=== PATIENT | female | born 1990 | race Caucasian/White ===

== ENCOUNTER → 2023-06-02 13:15 | Outpatient (BNV) | payer OTHER, SELFPAY | PROVIDERS: Visit Provider Psychiatry & Neurology Psychiatry | DX: F33.2 Major depressive disorder, recurrent severe without psychotic features (principal); F39 Unspecified mood [affective] disorder; F43.10 Post-traumatic stress disorder, unspecified; F63.89 Other impulse disorders; R41.840 Attention and concentration deficit; F12.10 Cannabis abuse, uncomplicated; F90.2 Attention-deficit hyperactivity disorder, combined type; F33.9 Major depressive disorder, recurrent, unspecified | CPT/HCPCS: 90792; 99213 ==

== ENCOUNTER 2023-06-03 13:15 | Outpatient (RCR) | payer OTHER, SELFPAY ==
[2023-05-20 10:44] VITALS: BP 120/83; PULSE 60; TEMP 36.9
[2023-05-20 10:47] VITALS: BMI 28.3
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
[2023-05-20 13:14] LABS: Amphetamine Screen Urine Not Detected (Not Detect); Barbiturates, Urine Not Detected (Not Detect); Benzodiazepines Screen Urine Not Detected (Not Detect); Cannabinoid Screen Urine POSITIVE (Not Detect); Cocaine Screen Urine Not Detected (Not Detect); Fentanyl, urine Not Detected (Not Detect); Opiate Screen Urine Not Detected (Not Detect); Phencyclidine Screen Urine Not Detected (Not Detect)
--- NOTE | 2023-05-20 18:38 | HO.PHP ---
The client's case was reviewed and opened in treatment team.
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
--- NOTE | 2023-05-25 21:32 | HO.PHPPROGNO ---
Subjective Subjective Date of Service: 05/25/23 Reason For Visit: depression,anxiety Interim History: Patient seen for follow-up. No acute issues or concerns. Reports that the gabapentin has been helpful for sleep, able to stay asleep and wake in the morning calmer, less hyper, not rushing around as much. I dont feel like I'm bouncing around in the morning as much, I can process things a little better . (She is still notably hyperactive - humorous, gregarious, animated communication style, exaggerated facial expressions, gestures with her hands when speaking - perhaps modestly calmer and does not appear nervous). Mood is dulled down has felt les depressed since being on the Zoloft, describes mood as being more level, a little flat overall, however when emotionally provoked, she reports experiencing spikes far more intense and dramatic than at baseline. She asked her boyfriend and mother, what they have noticed, and they see the same thing. In fact her boyfriend finds these extreme mood spikes, are less often, but when they occurr are more extreme and last a little longer (ie. take longer to resolve, by several hours) than her previous baseline. Her baseline is described as emotionally reactive but quickly resolves and returns to baseline with an hour or so. Medication Compliance: Yes Side effects from medications: No Attending Groups: Yes Review of Systems Acute medical concerns: No Mental Status Exam Mental Status Exam Narrative: Alert, oriented, in no acute distress. Appropriately dressed. Hygiene, grooming intact. Normal gait, no tics/tremors/dyskinesia, animated, hyperactive, no psychomotor agitation or neurovegetative retardation. Engaged, cooperative, forthcoming. Maintains appropriate eye contact. Mood is improving, less anxious. Affect bright, full range, reactive without irritability or lability.? Speech is abundant, mod-loud volume, regular rate, rhythm, prosody. No latency or pressured speech. Thought process somewhat scattered, expansive but coherent, no FOI or PARTH. Thought content relevant to stressors, no paranoid or delusional content elicited, +future-orientation. Denies SI or HI on inquiry. No evidence of psychosis. Cognition grossly intact. Sensorium clear. Insight fair/good. Judgment intact. Diagnostics Vital Signs (24Hr): BMI result Body Mass Index 28.3 Assessment & Plan Assessment & Plan (1) Mood disorder: Status: Acute Code(s): F39 - Unspecified mood [affective] disorder (2) Attention deficit hyperactivity disorder (ADHD): Qualifiers: Attention deficit-hyperactivity disorder type: predominantly hyperactive Qualified Code(s): F90.1 - Attention-deficit hyperactivity disorder, predominantly hyperactive type Status: Acute Code(s): F90.9 - Attention-deficit hyperactivity disorder, unspecified type (3) Post-traumatic stress disorder, unspecified: Status: Acute Code(s): F43.10 - Post-traumatic stress disorder, unspecified (4) Cannabis abuse: Status: Acute Code(s): F12.10 - Cannabis abuse, uncomplicated Plan start Lamictal 25 mg qd, increase by 25 mg q 2 weeks until reach 100 mg/d will continue Zoloft for now, anticipate taper off once Lamictal is therapeutic start Concerta 18 mg qAM (limit 3x/wk) continue gabapentin 300 mg qhs continue to monitor Patient educated on: diagnosis, medication risk/benefits, substance abuse and therapeutic strategies Informed Consent: understands Reason for contiued partial hosp. stay Substantial Risk for: inability to function and med/psych decompensation Certification I certify that partial hospital treatment is medically necessary due to the symptoms and problems resulting from the patient's mental illness and the failure to treat the patient at the partial hospital level of care would likely result in the patient requiring inpatient psychiatric care which could not be prevented at a less intensive level of care. Total time managing care of this patient today __30__ minutes. Discharge Plan Discharge Attending provider: Shirley Sánchez Additional Instructions: Elisha has a med provider appointment July 27, 2022 at 4:20 PM with Pavel Freitas. Medications: New gabapentin 300 mg capsule 300 mg PO BEDTIME Qty: 14 0RF lamotrigine 25 mg tablet See Rx Instructions .ROUTE .COMPLEX 45 Days Qty: 90 0RF Rx Instructions: take 1 tablet po daily for 2 weeks, then increase to 2 tablets po daily for 2 weeks, then take 3 tablets daily methylphenidate HCl [Concerta] 18 mg tablet extended release 24hr 18 mg PO QAM Qty: 14 0RF Rx Instructions: Partial Fill upon patient request. Continued sertraline 50 mg tablet 50 mg PO DAILY melatonin 10 mg Tablet 10 mg PO BEDTIME PRN (Reason: Insomnia) No Action quetiapine 50 mg tablet 50 mg PO BEDTIME Stand Alone Forms: Patient Portal Discharge page
--- NOTE | 2023-05-27 08:12 | HO.PHP ---
PHP staff member sent a fax referral for OP therapy to [facility] for Elishabhakti Valencia and is awaiting a scheduled date and time.
--- NOTE | 2023-06-03 09:52 | PC.NURSE ---
Patient requested help finding a new PCP. New PCP appointment made at [facility] with Dr. Beatty at [address] [place] [address]. Nahum hartley appointment on Friday October 13, 2023 at 11:30 am. Office Number [phone].
--- NOTE | 2023-06-03 22:16 | P.PNPSP_ITS ---
Subjective Subjective Date of Service: 06/03/23 Reason For Visit: depression,anxiety Interim History: Patient doing well, feeling calmer. Utilizing coping skills. Has been compliant on her medication, which is well-tolerated. She has been carrying an organizer with her and learning to implement using it to build better routines and structure in her life. She says it is helping her stay organized. She reports having had an appointment with her outpatient provider Dr. Davila last Wednesday. He says he is pleased with how she is doing and reportedly feels she is on a good medication regime. Unfortunately he informed her that he was no longer working there and that she would need to find a new psychiatrist. She has scheduled and upcoming appointment with a new psychiatrist Dr. Lovell but it's not until 07/27 at 9am. She also shows me the sticky note I gave her with the referral for [facility] in [place] to undergo ADHD testing at some point when she can afford it. She notes that she has been able to stay on top of tasks better with new strategies to provide remainders and help her stay organized. She notes this has been the most consistent she has been with medication. Gabapentin has been helpful with sleep. Denies any SI Mental Status Exam Mental Status Exam Narrative: Alert, oriented, in no acute distress. Appropriately dressed. Groomed. Normal gait, no tics/tremors/dyskinesia, animated, active, no psychomotor agitation or neurovegetative retardation. Calmer, engaged, cooperative, forthcoming. Maintains appropriate eye contact. Mood euthymic, Affect bright, full range, reactive without irritability or lability.? Speech regular rate, rhythm, prosody. No latency or pressured speech. Thought process expansive, bug goal- directed, coherent, no FOI or PARTH. Thought content relevant to stressors, no paranoid or delusional content elicited, +future-orientation. Denies SI or HI on inquiry. No evidence of psychosis. Cognition grossly intact. Sensorium clear. Insight fair/good. Judgment intact. Diagnostics Vital Signs (24Hr): BMI result Body Mass Index 28.3 Assessment & Plan Assessment & Plan (1) Attention deficit hyperactivity disorder (ADHD): Qualifiers: Attention deficit-hyperactivity disorder type: combined inattentive- hyperactive Qualified Code(s): F90.2 - Attention-deficit hyperactivity disorder, combined type Status: Acute Code(s): F90.9 - Attention-deficit hyperactivity disorder, unspecified type (2) Major depressive disorder, recurrent: Qualifiers: Major depression episode severity: unspecified Status: Acute Code(s): F33.9 - Major depressive disorder, recurrent, unspecified Assessment and Plan: with mood dysregulation 2/t ADHD (3) Post-traumatic stress disorder, unspecified: Status: Acute Code(s): F43.10 - Post-traumatic stress disorder, unspecified Plan Discharge from [facility] continue Lamictal titration (incr by 25 mg/d q 2 wks until @ 100 mg/d) continue Concerta 18 mg qAM (limit 3x/wk or less for now, until Lamital therapeutic) continue gabapentin 300 mg qhs (may take additional 300 mg PRN, not being utilized) Patient educated on: diagnosis, medication risk/benefits and substance abuse Informed Consent: understands Reason for contiued partial hosp. stay Substantial Risk for: stable for discharge Certification I certify that partial hospital treatment is medically necessary due to the symptoms and problems resulting from the patient's mental illness and the failure to treat the patient at the partial hospital level of care would likely result in the patient requiring inpatient psychiatric care which could not be prevented at a less intensive level of care. Total time managing care of this patient today __30__ minutes. Discharge Plan Discharge Attending provider: Shirley Sánchez Additional Instructions: Elisha has a med provider appointment July 27, 2022 at 4:20 PM with Pavel Freitas. New PCP appointment at [facility] with Dr. Beatty at [address] [place] [address]. Friday October 13, 2023 at 11:30 am. Office Number [phone]. Medications: New lamotrigine 25 mg tablet See Rx Instructions .ROUTE .COMPLEX 45 Days Qty: 90 0RF Rx Instructions: take 1 tablet po daily for 2 weeks, then increase to 2 tablets po daily for 2 weeks, then take 3 tablets daily lamotrigine 100 mg tablet 100 mg PO DAILY 30 Days Qty: 30 0RF Continued sertraline 50 mg tablet 50 mg PO DAILY melatonin 10 mg Tablet 10 mg PO BEDTIME PRN (Reason: Insomnia) methylphenidate HCl [Concerta] 18 mg tablet extended release 24hr 18 mg PO QAM Qty: 20 0RF Rx Instructions: Partial Fill upon patient request. Changed gabapentin 300 mg capsule 300 - 600 mg PO BEDTIME PRN (Reason: sleep) Qty: 45 0RF Discontinued quetiapine 50 mg tablet 50 mg PO BEDTIME Stand Alone Forms: Patient Portal Discharge page
--- NOTE | 2023-06-04 10:19 | PC.NURSE ---
Elisha called and stated the pharmacy did not have her prescriptions yesterday. I called the pharmacy and they stated they only received prescription for Lamictal. I spoke to Elisha who stated she needed Methylphenedate and Gabapentin filled. Dr Gonzalo wu.
== END 2023-06-03 23:59 | disposition home or self-care (01) ==
LOC: HO.PHPA 13:15
PROVIDERS: Visit Provider Psychiatry & Neurology Psychiatry
DX: F33.2 Major depressive disorder, recurrent severe without psychotic features (principal); F39 Unspecified mood [affective] disorder; F43.10 Post-traumatic stress disorder, unspecified; F63.89 Other impulse disorders; F90.2 Attention-deficit hyperactivity disorder, combined type; F12.10 Cannabis abuse, uncomplicated; Z79.899 Other long term (current) drug therapy
CPT/HCPCS: 80307; 90791; 90853